=== PATIENT | female | born 1955 | race Caucasian/White ===

== ENCOUNTER → 2017-07-26 | Outpatient (CLI) | payer OTHER ==
[~2017-07-26] MED LIST: ALLEGRA180 MG PO; APAP500 PO; CALCIUM 600 +1 EAC1 PO; GLUCOPHAGE500 MG PO; LEVOTHYROXIN0.125 M1 PO; MICARDIS HCT 81 EACH PO; MULTIVITAMINS PO; NOLVADEX20 MG PO; PRAVACHOL80 MG PO; SAPHRIS10 MG PO; SYMBICORT80 MCG/4.1 INH; TOPROL XL50 MG PO; XANAX XR1 MG PO; ZOLOFT100 MG PO
== END ==
LOC: RAD 00:51
DX: Z12.31 Encounter for screening mammogram for malignant neoplasm of breast (principal)

== ENCOUNTER → 2018-08-02 | Outpatient (CLI) | payer OTHER | LOC: BC 00:31 | DX: Z12.31 Encounter for screening mammogram for malignant neoplasm of breast (principal) ==

== ENCOUNTER → 2019-08-03 | Outpatient (CLI) | payer OTHER | LOC: RAD 02:20 | DX: Z12.31 Encounter for screening mammogram for malignant neoplasm of breast (principal) ==

== ENCOUNTER → 2020-08-20 | Outpatient (CLI) | payer OTHER | LOC: BC 09:57 | PROVIDERS: ATTEND Internal Medicine | DX: Z12.31 Encounter for screening mammogram for malignant neoplasm of breast (principal) ==

== ENCOUNTER → 2021-08-26 | Outpatient (CLI) | payer OTHER | LOC: RAD 09:01 | PROVIDERS: ATTEND Internal Medicine | DX: Z12.31 Encounter for screening mammogram for malignant neoplasm of breast (principal); N64.89 Other specified disorders of breast ==